=== PATIENT | male | born 1985 | race Hispanic/Latino ===

== ENCOUNTER 2020-06-12 06:59 | Observation (INO) | payer SELFPAY ==
[2020-06-12] MEDS ORDERED: ASPIRIN 325 MG TAB PO ONE (07:25)
[2020-06-12 08:26] LABS: Basophils # (Auto) 0.1 K/mm3 (0.0-0.1); Basophils % (Auto) 1.1 % (0.0-1.8); Eosinophils # (Auto) 0.2 K/mm3 (0.0-0.4); Eosinophils % (Auto) 4.2 % (0.0-4.3); Hematocrit 49.5 % (35.5-45.6); Hemoglobin 17.5 gm/dl (11.8-15.2); Lymphocytes # (Auto) 2.4 K/mm3 (1.2-5.4); Lymphocytes % (Auto) 49.5 % (13.4-35.0); Mean Corpuscular HGB Conc 35 % (32-34); Mean Corpuscular Volume 92 fl (84-94); Monocytes # (Auto) 0.5 K/mm3 (0.0-0.8); Monocytes % (Auto) 9.6 % (0.0-7.3); Platelet Count 220 K/mm3 (140-440); Red Blood Count 5.38 M/mm3 (3.65-5.03)
--- NOTE | 2020-06-12 09:00 | XRay Report ---
CHEST 2 VIEWS INDICATION: Chest Pain. COMPARISON: None. FINDINGS: Support devices: None. Heart: Within normal limits. Lungs: No acute air space or interstitial disease. Pleura: No significant pleural effusion. No pneumothorax. Additional findings: None. IMPRESSION: No acute abnormality. Signer Name: Kelechi Moore MD Signed: 06/12/2020 8:55 AM Workstation Name: [email or web address]
[2020-06-12 09:36] LABS: BUN/Creatinine Ratio 15; Blood Urea Nitrogen 12 mg/dL (9-20); Calcium 9.6 mg/dL (8.4-10.2); Hemolysis Index 40
[2020-06-12] MEDS ORDERED: ASPIRIN 325 MG TAB ONE (09:59)
--- NOTE | 2020-06-12 10:53 | Emergency Department Report ---
ED Chest Pain HPI - General Chief Complaint: Chest Pain Stated Complaint: CHEST PAIN/PALPATATIONS Time Seen by Provider: 06/12/20 10:49 Source: patient Mode of arrival: Ambulatory Limitations: No Limitations - History of Present Illness Initial Comments: This is a 35-year old man who drove up from [place] approximately 1 week ago to visit his family. He states that last night he experienced a tachycardia. He checked his pulse with a pulse oximeter and it read 200. After that he states the pulse oximetry showed heart rate irregularity. He states that the heart rate of 200 persisted for about 15 minutes. Thereafter he had palpitations he was in the waiting room but not since he has been on a panel monitor. He states he does not smoke. He denies substance abuse. He does not take any medicine except for baby aspirin. He states he was on Effient after his stent in 2017 which was placed in [place]. 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 He states he was told to essentially do a Valsalva maneuver when he has a rapid heart rate. He does describe going to the emergency department getting an IV and medication in similar circumstances. He does state he has a history of atrial fibrillation. However he denies ever being on Coumadin Eliquis or Xarelto. During the episode he states that he had left-sided chest tightness, sweating and shortness of breath. Since he has been in the emergency department he states he has been resting comfortably without any recurrent symptoms. MD Complaint: chest pain -: minutes(s) Onset: during rest Pain Location: left chest Pain Radiation: other (Left scapula) Severity: moderate Quality: tightness Consistency: now resolved Improves With: nothing Worsens With: nothing re: diaphoresis (At least sweating), dyspnea Other Symptoms: denies: cough, fever, syncope Treatments Prior to Arrival: none Aspirin use within the Past 7 Days: (1) Yes - Related Data Allergies Allergy/AdvReac Type Severity Reaction Status Date / Time No Known Allergies Allergy Unverified 06/12/20 07:22 Heart Score - HEART Score History: Moderately suspicious EKG: Normal Age: < 45 Risk factors: > 3 risk factors or hx of atherosclerotic disease Troponin: < normal limit HEART Score: 3 - Critical Actions Critical Actions: 0-3 pts:0.9-1.7%risk of adverse cardiac event.Candidate for discharge ED Review of Systems ROS: Stated complaint: CHEST PAIN/PALPATATIONS Other details as noted in HPI Constitutional: denies: chills, fever Eyes: denies: eye pain, eye discharge, vision change ENT: denies: ear pain, throat pain Respiratory: shortness of breath. denies: cough, wheezing Cardiovascular: chest pain, palpitations Endocrine: no symptoms reported Gastrointestinal: denies: abdominal pain, nausea, diarrhea Genitourinary: denies: urgency, dysuria Musculoskeletal: denies: back pain, joint swelling, arthralgia Skin: denies: rash, lesions Neurological: denies: headache, weakness, paresthesias Psychiatric: denies: anxiety, depression Hematological/Lymphatic: denies: easy bleeding, easy bruising ED Past Medical Hx - Past Medical History Previous Medical History?: Yes Hx Heart Attack/AMI: Yes Additional medical history: Cardiac stents - Social History Smoking Status: Former Smoker Substance Use Type: None ED Physical Exam - General Limitations: Physical Limitation General appearance: obese - Head Head exam: Present: atraumatic, normocephalic - Eye Eye exam: Present: normal appearance. Absent: scleral icterus - ENT ENT exam: Present: mucous membranes moist - Neck Neck exam: Present: normal inspection - Respiratory Respiratory exam: Present: normal lung sounds bilaterally. Absent: respiratory distress - Cardiovascular Cardiovascular Exam: Present: regular rate, normal rhythm. Absent: systolic murmur, diastolic murmur, rubs, gallop - GI/Abdominal GI/Abdominal exam: Present: soft, normal bowel sounds. Absent: distended, tenderness, guarding, rebound - Rectal Rectal exam: Present: deferred - Extremities Exam Extremities exam: Present: normal inspection, other (Trace to 1+ ankle edema). Absent: calf tenderness - Back Exam Back exam: Present: normal inspection - Neurological Exam Neurological exam: Present: alert, oriented X3, CN II-XII intact. Absent: motor sensory deficit - Psychiatric Psychiatric exam: Present: normal affect, normal mood - Skin Skin exam: Present: warm, dry, intact, normal color. Absent: rash ED Course Vital Signs 06/12/20 06/12/20 06/12/20 07:24 09:30 10:00 Temperature 97.8 F Pulse Rate 67 71 79 Respiratory 16 18 17 Rate Blood Pressure 141/83 129/100 Blood Pressure 139/85 [Right] O2 Sat by Pulse 98 95 96 Oximetry 06/12/20 06/12/20 06/12/20 10:30 11:00 11:30 Temperature Pulse Rate 72 73 70 Respiratory 18 16 18 Rate Blood Pressure 126/87 126/87 134/82 Blood Pressure [Right] O2 Sat by Pulse 96 97 94 Oximetry - Reevaluation(s) Reevaluation #1: Patient status post PCI with tachycardia and chest pain. Referred to the hospital service for further care and evaluation. I have added a coagulation profile and proBNP as well as CK and UDS. 06/12/20 12:41 STORM score - Storm Score Age > 65: (0) No Aspirin use within the Past 7 Days: (1) Yes 3 or more CAD Risk Factors: (1) Yes 2 or more Angina events in past 24 hrs: (0) No Known CAD with more than 50% Stenosis: (1) Yes Elevated Cardiac Markers: (0) No ST Deviation Greater than 0.5mm: (0) No STORM Score: 3 ED Medical Decision Making - Lab Data Result diagrams: 06/12/20 07:50 06/12/20 07:50 Laboratory Results - last 24 hr 06/12/20 06/12/20 07:50 07:50 WBC 4.8 RBC 5.38 H Hgb 17.5 H Hct 49.5 H MCV 92 MCH 33 H MCHC 35 H RDW 14.0 Plt Count 220 Lymph % (Auto) 49.5 H [place] % (Auto) 9.6 H Eos % (Auto) 4.2 Baso % (Auto) 1.1 Lymph # (Auto) 2.4 [place] # (Auto) 0.5 Eos # (Auto) 0.2 Baso # (Auto) 0.1 Seg Neutrophils % 35.6 L Seg Neutrophils # 1.7 L Sodium 141 Potassium 4.1 Chloride 101.3 Carbon Dioxide 21 L Anion Gap 23 BUN 12 Creatinine 0.8 Estimated GFR > 60 BUN/Creatinine Ratio 15 Glucose 102 H Calcium 9.6 Troponin T < 0.010 - EKG Data -: EKG Interpreted by Me EKG shows normal: sinus rhythm, axis, intervals, QRS complexes, ST-T waves Rate: normal - EKG Data Interpretation: nonspecific ST-T wave sheila - Radiology Data Radiology results: report reviewed IMPRESSION: No acute abnormality. Critical care attestation.: If time is entered above; I have spent that time in minutes in the direct care of this critically ill patient, excluding procedure time. ED Disposition Clinical Impression: Tachycardia Chest pain Qualifiers: Chest pain type: unspecified Qualified Code(s): R07.9 - Chest pain, unspecified CAD (coronary artery disease) Qualifiers: Coronary Disease-Associated Artery/Lesion type: [place] artery [place] vs. transplanted heart: [place] heart Associated angina: with other forms of angina Qualified Code(s): I25.118 - Atherosclerotic heart disease of [place] coronary artery with other forms of angina pectoris Disposition: 09 OP ADMIT IP TO THIS HOSP Is pt being admited?: Yes Does the pt Need Aspirin: Yes Condition: Stable Instructions: Chest Pain (ED) Referrals: PRIMARY CARE, [Primary Care Provider] - 3-5 Days Time of Disposition: 12:44
[2020-06-12 13:13] LABS: INR 0.94 (0.87-1.13); Partial Thromboplastin Time 28.7 Sec. (24.2-36.6)
[2020-06-12 13:30] LABS: Creatine Kinase MB 2.8 ng/mL (0.0-4.0)
[2020-06-12] MEDS ORDERED: MORPHINE 2 MG/1 ML INJ IV ONE (15:19)
[2020-06-12] MEDS ORDERED: MORPHINE 2 MG/1 ML INJ ONE (15:39)
[2020-06-12] MEDS ORDERED: MORPHINE 2 MG/1 ML INJ IV PRN (22:49)
--- NOTE | 2020-06-12 23:01 | History and Physical Report ---
History of Present Illness Date of examination: 06/12/20 Date of admission: 06/12/20 12:44 Chief complaint: Chest pain and palpitation since last night History of present illness: 35-year-old -[place] male with history of coronary artery disease and one stent in 2017 comes in for palpitations and chest pain since last night. Patient apparently noted a heart rate of 200 on his oxygen saturation meter. Patient has been having palpitations intermittently since last night and intermittent chest pain. Patient had undergone stent in one of the [facility] which is not able to name it. This was in 2017 and he took Effient for some time and then stopped taking Effient. He is not on any blood pressure medication. Patient is not sure whether he has hypertension or not. Not taking aspirin also. Chest pain is precordial and not radiating. Chest pain is about 6 on a scale of 1-10. No diaphoresis or shortness of breath. No exacerbating or relieving factors. No fever or exposure to coronavirus. Heart Score - HEART Score History: Moderately suspicious EKG: Normal Age: < 45 Risk factors: > 3 risk factors or hx of atherosclerotic disease Troponin: < normal limit HEART Score: 3 - Critical Actions Critical Actions: 0-3 pts:0.9-1.7%risk of adverse cardiac event.Candidate for discharge - Past Medical History Previous Medical History?: Yes Heart Attack/AMI: Yes Additional medical history: Cardiac stents Past surgical history Cardiac stentsx1 Family history Htn - Social History Smoking Status: Former Smoker Substance Use Type: None Review of Systems ROS: Stated complaint: CHEST PAIN/PALPATATIONS Other details as noted in HPI Constitutional: denies: chills, fever Eyes: denies: eye pain, eye discharge, vision change ENT: denies: ear pain, throat pain Respiratory: shortness of breath. denies: cough, wheezing Cardiovascular: chest pain, palpitations Endocrine: no symptoms reported Gastrointestinal: denies: abdominal pain, nausea, diarrhea Genitourinary: denies: urgency, dysuria Musculoskeletal: denies: back pain, joint swelling, arthralgia Skin: denies: rash, lesions Neurological: denies: headache, weakness, paresthesias Psychiatric: denies: anxiety, depression Hematological/Lymphatic: denies: easy bleeding, easy bruising Medications and Allergies Allergies Allergy/AdvReac Type Severity Reaction Status Date / Time No Known Allergies Allergy Unverified 06/12/20 07:22 Home Medications Medication Instructions Recorded Confirmed Last Taken Type Aspirin 325 mg PO QDAY 06/12/20 06/12/20 06/12/20 History Active Meds: Active Medications Morphine Sulfate (Morphine) 2 mg IV Q4H PRN PRN Reason: Pain, Moderate (4-6) Exam - Constitutional Vitals: Temp Pulse Resp BP Pulse Ox 97.7 F 73 16 135/74 91 06/12/20 20:40 06/12/20 20:40 06/12/20 20:40 06/12/20 20:40 06/12/20 20:40 General appearance: Present: no acute distress, well-nourished - EENT Eyes: Present: PERRL ENT: hearing intact, clear oral mucosa - Neck Neck: Present: supple, normal ROM - Respiratory Respiratory effort: normal Respiratory: bilateral: CTA - Cardiovascular Heart rate: 78 Rhythm: regular Heart Sounds: Present: S1 & S2. Absent: rub, click - Extremities Extremities: no ischemia, pulses intact, pulses symmetrical, No edema Peripheral Pulses: within normal limits - Abdominal General gastrointestinal: Present: soft, non-tender, non-distended, normal bowel sounds Male genitourinary: Present: normal - Integumentary Integumentary: Present: clear, warm, dry - Musculoskeletal Musculoskeletal: gait normal, strength equal bilaterally - Psychiatric Psychiatric: appropriate mood/affect, intact judgment & insight - Neurologic Neurologic: CNII-XII intact, moves all extremities - Allied Health Allied health notes reviewed: nursing, case management HEART Score - HEART Score EKG: Normal Age: < 45 Risk factors: > 3 risk factors or hx of atherosclerotic disease Troponin: Troponin T < 0.010 ng/mL (0.00-0.029) 06/12/20 14:35 Troponin: < normal limit - Critical Actions Critical Actions: 0-3 pts:0.9-1.7%risk of adverse cardiac event.Candidate for discharge Results - Labs CBC & Chem 7: 06/12/20 07:50 06/12/20 07:50 Labs: Laboratory Last Values WBC 4.8 K/mm3 (4.5-11.0) 06/12/20 07:50 RBC 5.38 M/mm3 (3.65-5.03) H 06/12/20 07:50 Hgb 17.5 gm/dl (11.8-15.2) H 06/12/20 07:50 Hct 49.5 % (35.5-45.6) H 06/12/20 07:50 MCV 92 fl (84-94) 06/12/20 07:50 MCH 33 pg (28-32) H 06/12/20 07:50 MCHC 35 % (32-34) H 06/12/20 07:50 RDW 14.0 % (13.2-15.2) 06/12/20 07:50 Plt Count 220 K/mm3 (140-440) 06/12/20 07:50 Lymph % (Auto) 49.5 % (13.4-35.0) H 06/12/20 07:50 [place] % (Auto) 9.6 % (0.0-7.3) H 06/12/20 07:50 Eos % (Auto) 4.2 % (0.0-4.3) 06/12/20 07:50 Baso % (Auto) 1.1 % (0.0-1.8) 06/12/20 07:50 Lymph # (Auto) 2.4 K/mm3 (1.2-5.4) 06/12/20 07:50 [place] # (Auto) 0.5 K/mm3 (0.0-0.8) 06/12/20 07:50 Eos # (Auto) 0.2 K/mm3 (0.0-0.4) 06/12/20 07:50 Baso # (Auto) 0.1 K/mm3 (0.0-0.1) 06/12/20 07:50 Seg Neutrophils % 35.6 % (40.0-70.0) L 06/12/20 07:50 Seg Neutrophils # 1.7 K/mm3 (1.8-7.7) L 06/12/20 07:50 PT 12.8 Sec. (12.2-14.9) 06/12/20 12:41 INR 0.94 (0.87-1.13) 06/12/20 12:41 APTT 28.7 Sec. (24.2-36.6) 06/12/20 12:41 Sodium 141 mmol/L (137-145) 06/12/20 07:50 Potassium 4.1 mmol/L (3.6-5.0) 06/12/20 07:50 Chloride 101.3 mmol/L (98-107) 06/12/20 07:50 Carbon Dioxide 21 mmol/L (22-30) L 06/12/20 07:50 Anion Gap 23 mmol/L 06/12/20 07:50 BUN 12 mg/dL (9-20) 06/12/20 07:50 Creatinine 0.8 mg/dL (0.8-1.3) 06/12/20 07:50 Estimated GFR > 60 ml/min 06/12/20 07:50 BUN/Creatinine Ratio 15 % 06/12/20 07:50 Glucose 102 mg/dL (75-100) H 06/12/20 07:50 Calcium 9.6 mg/dL (8.4-10.2) 06/12/20 07:50 Total Creatine Kinase 720 units/L (55-170) H 06/12/20 12:32 CK-MB (CK-2) 2.8 ng/mL (0.0-4.0) 06/12/20 12:32 CK-MB (CK-2) Rel Index 0.3 (0-4) 06/12/20 12:32 Troponin T < 0.010 ng/mL (0.00-0.029) 06/12/20 14:35 NT-Pro-B Natriuret Pep 10.27 pg/mL (0-450) 06/12/20 12:32 - Imaging and Cardiology EKG: report reviewed (Sinus rhythm heart rate of 80/min no acute ST-T wave changes) Chest x-ray: report reviewed (No acute findings) Lowe/IV: IV Catheter Type [Right Hand] INT / Saline Lock Assessment and Plan Advance Directives: Yes Plan of care discussed with patient/family: Yes - Patient Problems (1) Acute coronary syndrome Current Visit: Yes Status: Acute Plan to address problem: Serial troponins and Lexiscan in the morning Patient has history of coronary artery disease and one stent in the past Cardiology consult because of the palpitations presumed tachycardia (2) CAD (coronary artery disease) Current Visit: Yes Status: Chronic Qualifiers: Coronary Disease-Associated Artery/Lesion type: [place] artery [place] vs. transplanted heart: [place] heart Associated angina: with other forms of angina Qualified Code(s): I25.118 - Atherosclerotic heart disease of [place] coronary artery with other forms of angina pectoris Plan to address problem: Patient had 1 stent in the past Patient was counseled about taking aspirin and Effient/Plavix if prescribed by cardiology (3) Polycythemia due to fall in plasma volume Current Visit: Yes Status: Chronic Plan to address problem: IV fluids for now and recheck the hemoglobin and hematocrit (4) Arrhythmia Current Visit: Yes Status: Acute Qualifiers: Arrhythmia type: unspecified cardiac arrhythmia Qualified Code(s): I49.9 - Cardiac arrhythmia, unspecified Plan to address problem: Antiarrhythmics if necessary depending on telemetry strips Low-dose Lopressor initiated (5) DVT prophylaxis Current Visit: Yes Status: Acute Plan to address problem: Heparin 5000 every 12 and GI prophylaxis
[2020-06-12] MEDS ORDERED: ONDANSETRON 4 MG/2 ML INJ IV PRN (23:15)
[2020-06-12] MEDS ORDERED: oxyCODONE /ACETAMINOPHEN 5-325MG TAB PO PRN (23:15)
[2020-06-12] MEDS ORDERED: HYDROmorphone 1 MG/1 ML INJ IV PRN (23:15)
[2020-06-12] MEDS ORDERED: ACETAMINOPHEN 325 MG TAB PO PRN (23:15)
[2020-06-12] MEDS ORDERED: D5W/0.45% NACL 1,000 ML IV SCH (23:45)
[2020-06-13] MEDS: HEPARIN 5,000 UNIT/1 ML VIAL SUB-Q SCH ×2 (00:05→10:43)
[2020-06-13 05:34] LABS: Bilirubin,Urine NEG (Negative); Blood,Urine NEG (Negative); Color,Urine Yellow (Yellow); Mucus,Urine FEW /HPF; Protein,Urine <15 mg/dL mg/dL (Negative)
[2020-06-13 05:38] LABS: Amphetamine Screen,Urine Negative; Benzodiazepines Screen,Urine Negative; Cocaine Screen,Urine Negative; Methadone Screen,Urine Negative; Opiate Screen,Urine Negative
[2020-06-13 05:52] LABS: Cannabinoid Screen,Urine Positive
[2020-06-13] MEDS ORDERED: FAMOTIDINE 20 MG/2 ML INJ IV SCH (10:00)
--- NOTE | 2020-06-13 10:14 | Consultation ---
History of Present Illness Consult date: 06/13/20 Requesting physician: TONE EASTMAN Consult reason: chest pain History of present illness: 35-year-old patient with hypertension hyperlipidemia and known coronary arterial disease had PCI in [place] in 2017 after myocardial infarction. Patient is only on aspirin. Patient has a questionable history of atrial fibrillation not on oral anticoagulation. Patient states compliance with aspirin and beta-oriana but not statin. 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 Patient has been doing more physical activity has some left-sided chest pain rating to the shoulder. But no shortness of breath no nausea no vomiting came to emergency room for evaluation negative cardiac enzymes here for treadmill stress test as patient's heart score is 3 Past History Past Medical History: CAD, hypertension, hyperlipidemia Past Surgical History: Other Social history: no significant social history (Stent) Family history: no significant family history Medications and Allergies Allergies Allergy/AdvReac Type Severity Reaction Status Date / Time No Known Allergies Allergy Unverified 06/12/20 07:22 Home Medications Medication Instructions Recorded Confirmed Last Taken Type Aspirin 325 mg PO QDAY 06/12/20 06/12/20 06/12/20 History Active Meds: Active Medications Acetaminophen (Tylenol) 650 mg PO Q4H PRN PRN Reason: Pain MILD(1-3)/Fever >100.5/NASH Famotidine (Pepcid) 20 mg IV BID [facility] Heparin Sodium (Porcine) (Heparin) 5,000 unit SUB-Q Q12HR [facility] Last Admin: 06/13/20 00:05 Dose: 5,000 unit Documented by: Hydromorphone HCl (Dilaudid) 0.5 mg IV Q3H PRN PRN Reason: Pain , Severe (7-10) Dextrose/Sodium Chloride (D5/0.45ns) 1,000 mls @ 100 mls/hr IV DIRECT [facility] Last Admin: 06/13/20 00:06 Dose: 100 mls/hr Documented by: Morphine Sulfate (Morphine) 2 mg IV Q4H PRN PRN Reason: Pain, Moderate (4-6) Last Admin: 06/12/20 23:06 Dose: 2 mg Documented by: Ondansetron HCl (Zofran) 4 mg IV Q8H PRN PRN Reason: Nausea And Vomiting Oxycodone/Acetaminophen (Percocet 5/325) 1 tab PO Q6H PRN PRN Reason: Pain, Moderate (4-6) Sodium Chloride (Sodium Chloride Flush Syringe 10 Ml) 10 ml IV BID AUBRIE Sodium Chloride (Sodium Chloride Flush Syringe 10 Ml) 10 ml IV PRN PRN PRN Reason: LINE FLUSH Review of Systems All systems: negative Physical Examination Vital Signs Temp Pulse Resp BP Pulse Ox 97.8 F 67 16 139/85 98 06/12/20 07:24 06/12/20 07:24 06/12/20 07:24 06/12/20 07:24 06/12/20 07:24 General appearance: no acute distress, well-nourished HEENT: Positive: PERRL, Mucus Membranes Moist Neck: Positive: neck supple, trachea midline Cardiac: Positive: Reg Rate and Rhythm, S1/S2. Negative: Audible Murmur Lungs: Positive: clear to auscultation, Normal Breath Sounds Neuro: Positive: Grossly Intact Abdomen: Positive: Soft, Active Bowel Sounds. Negative: Tender, Distended Male genitourinary: Positive: normal Skin: Positive: Clear Incision: Cardiac Cath Site Musculoskeletal: No Pain, Normal Range of Motion Extremities: Present: normal. Absent: edema Results 06/12/20 07:50 06/13/20 10:56 Cardiac Enzymes 06/12/20 Range/Units 12:32 CK-MB (CK-2) 2.8 (0.0-4.0) ng/mL Coagulation 06/12/20 Range/Units 12:41 PT 12.8 (12.2-14.9) Sec. INR 0.94 (0.87-1.13) APTT 28.7 (24.2-36.6) Sec. - Imaging and Cardiology Stress echo: pending EKG interpretations - Telemetry EKG Rhythm: Sinus Rhythm (Sinus rhythm nonspecific ST-T's) Assessment and Plan Patient walked at 9 minutes on Marques protocol with no EKG changes and no chest pain imaging is pending if negative patient may discharge from cardiovascular point of view with aspirin statin and beta-oriana and follow with physicians in [place] stress test showed no ischemia, may be discharged from [facility] point of view - Patient Problems (1) Hypertension Current Visit: Yes Status: Chronic Qualifiers: Hypertension type: essential hypertension Qualified Code(s): I10 - Essential (primary) hypertension (2) Hyperlipemia, mixed Current Visit: Yes Status: Chronic (3) Acute coronary syndrome Current Visit: Yes Status: Acute (4) Tachycardia Current Visit: Yes Status: Acute (5) CAD (coronary artery disease) Current Visit: Yes Status: Chronic Qualifiers: Coronary Disease-Associated Artery/Lesion type: [place] artery [place] vs. transplanted heart: [place] heart Associated angina: with other forms of angina Qualified Code(s): I25.118 - Atherosclerotic heart disease of [place] coronary artery with other forms of angina pectoris
[2020-06-13] MEDS ORDERED: METOPROLOL SUCCINATE XL 25 MG TAB PO SCH (11:00)
[2020-06-13 12:13] LABS: Alanine Aminotransferase 135 units/L (7-56); Albumin 4.2 g/dL (3.9-5); BUN/Creatinine Ratio 11; Blood Urea Nitrogen 9 mg/dL (9-20); Calcium 8.9 mg/dL (8.4-10.2); Hemolysis Index 19
--- NOTE | 2020-06-13 13:33 | Treadmill Report ---
TREADMILL NUCLEAR STRESS TEST READING PHYSICIAN: Dr. Majano. REASON FOR STUDY: Chest pain. IMAGING PROTOCOL: The patient received 10 mCi of Technetium 99m Tetrofosmin for resting image and 28 mCi of Technetium 99m Tetrofosmin for stress imaging. The imaging for the whole procedure was completed 30-90 minutes following the initial injection of Technetium 99m Tetrofosmin. The SPECT imaging in the 180 degree arc was performed in the right anterior oblique projection. Computerized reconstruction of the images was performed for analysis. IMAGING RESULTS: Normal cavity size from stress to rest. Normal distribution of radionuclide in the anterior, inferior, septal, and apical regions. Gated SPECT, EF of 50% with no wall motion abnormalities. The patient exercised on Marques protocol for 9 minutes, had no EKG changes. He achieved 100% max predicted heart rate. Peak heart rate was 190 beats per minute and no EKG changes or arrhythmia suggest ischemia, no exaggerated BP response. Peak blood pressure was 190/80. SUMMARY: 1 Negative treadmill EKG. 2. Fair to good exercise capacity 9 minutes Marques protocol. 3. No exaggerated BP response to exercise. 4. No EKG changes or arrhythmia suggest ischemia. 5. Normal rest and stress myocardial perfusion scan. No significant ischemia. No wall motion abnormality. Gated SPECT, EF 50%. JOB# [id number] DANY/GABRIELA
[2020-06-13 16:31] VITALS: BP 131/88
--- NOTE | 2020-06-13 17:42 | Discharge Summary ---
Providers - Providers Date of Admission: 06/12/20 12:44 Date of discharge: 06/13/20 Attending physician: TONE EASTMAN 06/12/20 23:25 Consult to Physician [CONS] Routine Comment: Consulting Provider: MACARENA BELTRAN Physician Instructions: Reason For Exam: Chest pain Primary care physician: HOSPICE HOME HEALTH AIDE Hospitalization Condition: Stable Hospital course: 35-year-old -[place] male with history of coronary artery disease and one stent in 2017 comes in for palpitations and chest pain since last night. Patient apparently noted a heart rate of 200 on his oxygen saturation meter. Patient has been having palpitations intermittently since last night and intermittent chest pain. Patient had undergone stent in one of the coronary arteries which is not able to name it. This was in 2017 and he took Effient for some time and then stopped taking Effient. He is not on any blood pressure medication. Patient is not sure whether he has hypertension or not. Not taking aspirin also. Chest pain is precordial and not radiating. Chest pain is about 6 on a scale of 1-10. No diaphoresis or shortness of breath. No exacerbating or relieving factors. No fever or exposure to coronavirus. (1) Acute coronary syndrome Current Visit: Yes Status: Acute Plan to address problem: Serial troponins and Lexiscan in the morning Patient has history of coronary artery disease and one stent in the past Cardiology consult because of the palpitations presumed tachycardia Patient walked at 9 minutes on [place] protocol with no EKG changes and no chest pain imaging is negative. Patient may discharge with aspirin statin and beta- oriana and follow with physicians in [place] stress test showed no ischemia, (2) CAD (coronary artery disease) Current Visit: Yes Status: Chronic Qualifiers: Coronary Disease-Associated Artery/Lesion type: [place] artery [place] vs. 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 [place] (3) Polycythemia due to fall in plasma volume Current Visit: Yes Status: Chronic Plan to address problem: Improved (4) Arrhythmia Current Visit: Yes Status: Acute Qualifiers: Arrhythmia type: unspecified cardiac arrhythmia Qualified Code(s): I49.9 - Cardiac arrhythmia, unspecified Plan to address problem: Antiarrhythmics if necessary depending on telemetry strips Low-dose Lopressor initiated Discharge on low-dose Lopressor 25 mg XL Disposition: DC- TO HOME OR SELFCARE - Discharge Diagnoses (1) Acute coronary syndrome Status: Acute (2) CAD (coronary artery disease) Status: Chronic Qualifiers: Coronary Disease-Associated Artery/Lesion type: [place] artery [place] vs. transplanted heart: [place] heart Associated angina: with other forms of angina Qualified Code(s): I25.118 - Atherosclerotic heart disease of [place] coronary artery with other forms of angina pectoris (3) Polycythemia due to fall in plasma volume Status: Chronic (4) Arrhythmia Status: Acute Qualifiers: Arrhythmia type: unspecified cardiac arrhythmia Qualified Code(s): I49.9 - Cardiac arrhythmia, unspecified (5) DVT prophylaxis Status: Acute Core Measure Documentation - Palliative Care Palliative Care/ Comfort Measures: Not Applicable - Core Measures Any of the following diagnoses?: none Exam - Constitutional Vitals: Temp Pulse Resp BP Pulse Ox 97.8 F 76 18 131/88 94 06/13/20 15:00 06/13/20 15:00 06/13/20 15:00 06/13/20 15:00 06/13/20 15:00 General appearance: Present: no acute distress, well-nourished - EENT Eyes: Present: PERRL ENT: hearing intact, clear oral mucosa - Neck Neck: Present: supple, normal ROM - Respiratory Respiratory effort: normal Respiratory: bilateral: CTA - Cardiovascular Heart rate: 70 Rhythm: regular Heart Sounds: Present: S1 & S2. Absent: rub, click - Extremities Extremities: pulses symmetrical, No edema Peripheral Pulses: within normal limits - Abdominal General gastrointestinal: Present: soft, non-tender, non-distended, normal bowel sounds Male genitourinary: Present: normal - Integumentary Integumentary: Present: clear, warm, dry - Musculoskeletal Musculoskeletal: gait normal, strength equal bilaterally - Psychiatric Psychiatric: appropriate mood/affect, intact judgment & insight - Neurologic Neurologic: CNII-XII intact, moves all extremities Plan Diet: low salt Follow up with: PRIMARY CARE, [Primary Care Provider] - 3-5 Days
[2020-06-13] MEDS ORDERED: FAMOTIDINE 20 MG TAB PO SCH (22:00)
== END 2020-06-13 19:00 | disposition home or self-care (01) ==
LOC: ED 06:59 → 4A 12:44
PROVIDERS: ADMIT Internal Medicine; ATTEND Internal Medicine
DX: I24.9 Acute ischemic heart disease, unspecified (principal); I25.118 Atherosclerotic heart disease of native coronary artery with other forms of angina pectoris; D75.1 Secondary polycythemia; I49.9 Cardiac arrhythmia, unspecified; I10 Essential (primary) hypertension; E78.5 Hyperlipidemia, unspecified; R00.0 Tachycardia, unspecified; R07.89 Other chest pain; Z95.1 Presence of aortocoronary bypass graft; Z87.891 Personal history of nicotine dependence; Z79.82 Long term (current) use of aspirin; Z79.899 Other long term (current) drug therapy
CPT/HCPCS: 36415; 71046; 78452; 80048; 80053; 80307; 81001; 82550; 82553; 83036; 83880; 84484; 85025; 85610; 85730; 93005; 93017; 96361; 96372; 96374; 96375; 96376; 99285; A9502; G0378; J1644; J2270